=== PATIENT | female | born 1960 | race Caucasian/White ===

== ENCOUNTER 2017-04-04 12:57 | Inpatient (IN) | payer MEDICAID ==
[~2017-04-04] VITALS: Ht 154.9 cm; Wt 70.0 kg
[2017-04-04 13:52] LABS: GLUCOSE,POINT OF CARE 123 MG/DL (70-110)
[2017-04-04] MEDS ORDERED: ONDANSETRON HCL 4 MG/2 ML VIAL IVP ONE (15:00)
[2017-04-04] MEDS ORDERED: SODIUM CHLORIDE 0.9% 1,000 ML IV ONE ×3 (15:00→19:00)
[2017-04-04] MEDS ORDERED: ACETAMINOPHEN 1000 MG/ISO-OSM 100 ML IV ONE (15:00)
[2017-04-04 15:42] LABS: BASOPHILS % (AUTO) 0.1 % (0.0-2.0); EOSINOPHILS % (AUTO) 0 % (1.0-6.0); HEMATOCRIT 35.8 % (36-46); HEMOGLOBIN 12.2 g/dL (12.0-16.0); LYMPHOCYTES # (AUTO) 1.6 K/uL (1.0-4.8); MEAN CORPUSCULAR HEMOGLOBIN 27.9 pg (26.0-34.0); MEAN CORPUSCULAR VOLUME 82 fL (80-100); MONOCYTES # (AUTO) 1.1 K/uL (0.1-1.0); MONOCYTES % (AUTO) 4.8 % (2.0-9.0); NEUTROPHILS # (AUTO) 19.9 K/uL (1.8-7.7); PLATELET COUNT (AUTO) 311 K/uL (150-450); RED BLOOD CELL COUNT(AUTO) 4.37 MIL/uL (4.00-5.20); RED CELL DISTRIBUTION WIDTH 18.5 % (11.5-14.5)
[2017-04-04 15:45] LABS: NEUTROPHILS % (AUTO) 88.1 % (40.0-70.0)
[2017-04-04 16:13] LABS: ANION GAP 13 mmol/L (8-16); CALCIUM, TOTAL 9.3 mg/dL (8.8-10.5); CARBON DIOXIDE 22 mmol/L (22-29); CHLORIDE 100 mmol/L (98-107); CREATININE 0.63 mg/dL (0.60-1.30); GLOMERULAR FILTR. RATE CALC > 60 mL/min (>60); GLUCOSE,RANDOM 113 mg/dL (70-110); POTASSIUM 3.3 mmol/L (3.5-5.1); SODIUM SERUM 135 mmol/L (136-145); UREA NITROGEN, BLOOD 9 mg/dL (7-18)
[2017-04-04 16:16] LABS: ALANINE AMINOTRANSFERASE 49 U/L (12-78); ALBUMIN 3.5 g/dL (3.4-5.0); ALKALINE PHOSPHATASE 90 U/L (46-116); ASPARTATE AMINOTRANSFERASE 32 U/L (15-37); BILIRUBIN,TOTAL 0.5 mg/dL (0.1-1.0); TOTAL PROTEIN, SERUM 8.2 g/dL (6.4-8.2)
[2017-04-04 17:12] LABS: INFLUENZA TYPE A NEGATIVE FOR TYPE A (NEGATIVE); INFLUENZA TYPE B NEGATIVE FOR TYPE B (NEGATIVE)
[2017-04-04 17:30] LABS: APPEARANCE,URINE CLEAR (CLEAR); BILIRUBIN,URINE NEGATIVE (NEGATIVE); GLUCOSE, URINE (UA) NEGATIVE (NEGATIVE); KETONES,URINE 40 mg/dL (NEGATIVE); LEUKOCYTE ESTERASE ,URINE NEGATIVE (NEGATIVE); NITRATE,URINE NEGATIVE (NEGATIVE); OCCULT BLOOD,URINE NEGATIVE (NEGATIVE); PROTEIN,URINE NEGATIVE (NEGATIVE)
[2017-04-04] MEDS ORDERED: CefTRIAXone 1 GM/DEXTROSE 50 ML IV ONE (18:15)
[2017-04-04] MEDS ORDERED: AZITHROMYCIN 500 MG/NS 250 ML IV ONE (18:15)
[2017-04-04] MEDS ORDERED: ACETAMINOPHEN 325 MG TABLET PO PRN (19:00)
[2017-04-04] MEDS ORDERED: 0.9% SODIUM CHLORIDE 10 ML SYRINGE IVP PRN (19:00)
[2017-04-04] MEDS ORDERED: ONDANSETRON HCL 4 MG/2 ML VIAL IVP PRN (19:00)
[2017-04-04] MEDS ORDERED: MORPHINE SULFATE 4 MG/ML SYRINGE IVP ONE (20:00)
[2017-04-04] MEDS ORDERED: PHENYLEPHRINE HCL 1% 15 ML NASAL SPRAY NASAL ONE (20:15)
[2017-04-04] MEDS ORDERED: POTASSIUM CHLORIDE 20 MEQ ER TABLET PO ONE (21:00)
[2017-04-04] MEDS ORDERED: ACET500C4 PO (21:28)
[2017-04-04] MEDS ORDERED: VERA80TA5 PO (21:30)
[2017-04-04 21:31] VITALS: BP 153/62
[2017-04-04] MEDS ORDERED: METO-558 PO (21:31)
[2017-04-04] MEDS ORDERED: PARO10TA71 PO (21:38)
[2017-04-04] MEDS ORDERED: PNEUMOCOCCAL VACCINE POLYVALENT 0.5 ML VIAL [PPSV23] IM ONE (23:00)
[2017-04-05 03:09] VITALS: BP 117/74
[2017-04-05] MEDS ORDERED: WATER IV PRN (06:15)
[2017-04-05] MEDS ORDERED: ONDANSETRON HCL IV PRN (06:15)
[2017-04-05] MEDS ORDERED: DEXTROSE 5% IV PRN (06:15)
[2017-04-05] MEDS: SODIUM CHLORIDE 0.9% 1,000 ML IV SCH (06:43)
[2017-04-05] MEDS ORDERED: METF-805 PO (06:52)
[2017-04-05 06:53] LABS: GLUCOMETER DEV NAME(LOC) 6N 2D; GLUCOSE,POINT OF CARE 91 MG/DL (70-110)
[2017-04-05 07:42] VITALS: BP 119/71
[2017-04-05 08:03] LABS: BASOPHILS % (AUTO) 0.2 % (0.0-2.0); EOSINOPHILS % (AUTO) 0 % (1.0-6.0); HEMOGLOBIN 10.4 g/dL (12.0-16.0); LYMPHOCYTES # (AUTO) 1.6 K/uL (1.0-4.8); LYMPHOCYTES % (AUTO) 9.9 % (22.0-44.0); MEAN CORPUSCULAR HEMOGLOBIN 27.7 pg (26.0-34.0); MEAN CORPUSCULAR HGB CONC 33.4 G/dL (31.0-37.0); MEAN CORPUSCULAR VOLUME 83 fL (80-100); MONOCYTES % (AUTO) 6.4 % (2.0-9.0); NEUTROPHILS # (AUTO) 13.7 K/uL (1.8-7.7); NEUTROPHILS % (AUTO) 83.5 % (40.0-70.0); PLATELET COUNT (AUTO) 279 K/uL (150-450); RED BLOOD CELL COUNT(AUTO) 3.74 MIL/uL (4.00-5.20); RED CELL DISTRIBUTION WIDTH 18.8 % (11.5-14.5)
[2017-04-05 08:10] LABS: ANION GAP 9 mmol/L (8-16); CALCIUM, TOTAL 8.5 mg/dL (8.8-10.5); CARBON DIOXIDE 24 mmol/L (22-29); CHLORIDE 107 mmol/L (98-107); CHOL/HDL RATIO 3.2 (3.9-5.7); CHOLESTEROL 148 mg/dL (131-200); GLOMERULAR FILTR. RATE CALC > 60 mL/min (>60); GLUCOSE,RANDOM 96 mg/dL (70-110); HDL CHOLESTEROL 46 mg/dL (40-60); LDL CHOL (CALC.) 88 mg/dL (0-130); POTASSIUM 3.4 mmol/L (3.5-5.1); SODIUM SERUM 140 mmol/L (136-145); TRIGLYCERIDES 69 mg/dL (15-150); UREA NITROGEN, BLOOD 6 mg/dL (7-18)
[2017-04-05] MEDS: PANTOPRAZOLE SODIUM 40 MG/VIAL IVP SCH (09:06)
[2017-04-05] MEDS ORDERED: PARoxetine HCL 10 MG TABLET PO PRN (10:15)
[2017-04-05] MEDS ORDERED: INSULIN ASPART 100 UNITS/ML SQ PRN (10:15)
[2017-04-05] MEDS ORDERED: DEXTROSE 50%-WATER 25 GM/50 ML SYRINGE IVP PRN (10:15)
[2017-04-05] MEDS: METOPROLOL SUCCINATE 50 MG ER TABLET PO SCH (11:28)
[2017-04-05] MEDS: VERAPAMIL HCL 80 MG TABLET PO SCH ×2 (11:28→20:25)
[2017-04-05] MEDS: MetFORMIN HCL 500 MG ER TABLET PO SCH (11:28)
[2017-04-05 11:33] VITALS: BP 129/89
[2017-04-05 11:53] LABS: GLUCOMETER DEV NAME(LOC) 6N 2D; GLUCOSE,POINT OF CARE 77 MG/DL (70-110)
[2017-04-05] MEDS: ACETAMINOPHEN 500 MG TABLET PO PRN (13:29)
[2017-04-05 15:37] VITALS: BP 137/75
[2017-04-05 17:42] LABS: GLUCOMETER DEV NAME(LOC) 6N 2D; GLUCOSE,POINT OF CARE 101 MG/DL (70-110)
[2017-04-05] MEDS ORDERED: AZITHROMYCIN 500 MG/NS 250 ML IV SCH (18:00)
[2017-04-05 19:50] VITALS: BP 107/60
[2017-04-05] MEDS ORDERED: ACETAMINOPHEN 650 MG/20.3 ML SOLUTION UDCUP PO PRN (20:00)
[2017-04-05 21:58] LABS: GLUCOMETER DEV NAME(LOC) 6N 2D; GLUCOSE,POINT OF CARE 126 MG/DL (70-110)
[2017-04-05 23:45] VITALS: BP 115/77
[2017-04-06] MEDS ORDERED: ONDANSETRON HCL 4 MG/2 ML VIAL IVP PRN (01:00)
[2017-04-06] MEDS: SODIUM CHLORIDE 0.9% 1,000 ML IV SCH ×2 (03:50→07:15)
[2017-04-06] MEDS: ACETAMINOPHEN 500 MG TABLET PO PRN ×2 (04:02→13:19)
[2017-04-06 04:49] VITALS: BP 136/78
[2017-04-06 07:23] LABS: GLUCOMETER DEV NAME(LOC) 6N 1E; GLUCOSE,POINT OF CARE 87 MG/DL (70-110)
[2017-04-06 07:30] VITALS: BP 146/79
[2017-04-06] MEDS: PANTOPRAZOLE SODIUM 40 MG/VIAL IVP SCH (08:12)
[2017-04-06] MEDS: MetFORMIN HCL 500 MG ER TABLET PO SCH (08:12)
[2017-04-06] MEDS: METOPROLOL SUCCINATE 50 MG ER TABLET PO SCH (08:12)
[2017-04-06] MEDS: VERAPAMIL HCL 80 MG TABLET PO SCH (08:12)
[2017-04-06 11:08] VITALS: BP 138/73
[2017-04-06] MEDS ORDERED: AZIT250T9 PO (11:35)
[2017-04-06] MEDS ORDERED: AMOX1TAB16 PO (11:38)
[2017-04-06] MEDS ORDERED: TRIA10.8 NASAL (11:43)
[2017-04-06 13:12] LABS: GLUCOMETER DEV NAME(LOC) 6N 1E; GLUCOSE,POINT OF CARE 87 MG/DL (70-110)
== END 2017-04-06 13:38 | disposition home or self-care (01) | DRG 720 ==
LOC: EMS 13:15 → 6N 18:56
PROVIDERS: ADMIT Internal Medicine; ATTEND Internal Medicine
DX: A41.9 Sepsis, unspecified organism (principal); R13.10 Dysphagia, unspecified; I10 Essential (primary) hypertension; J20.9 Acute bronchitis, unspecified; E11.9 Type 2 diabetes mellitus without complications; E86.0 Dehydration; R04.0 Epistaxis; R31.9 Hematuria, unspecified; Z79.4 Long term (current) use of insulin; Z79.2 Long term (current) use of antibiotics
CPT/HCPCS: 71020; 82962; 83036; 83605; 83735; 84443; 87040; 87804; 93005; 96361; 96365; 96375; 99285; C9113; J0131; J0456; J0696; J2270; J2405; J7030